=== PATIENT | male | born 1995 | race Caucasian/White ===

== ENCOUNTER 2017-10-21 10:30 | Outpatient (RCR) | payer OTHER, SELFPAY ==
--- NOTE | 2017-09-08 10:59 | HP.PTEVAL ---
Patient's Visit Information LUCY WILLETT is a 22 year old M referred to Physical Therapy by JESSIE TOWNSEND with a diagnosis of R HIP FEMOROACETABULAR IMPINGEMENT & LABRUM TEAR W/ SX REPAIR AND OSTEOPLAS. Date of Evaluation: 09/08/17 Physical Therapist: Letha Campos Cross - Visit Plan Frequency: 2-3x /Week Duration: 4-6 Weeks Plan: RIGHT HIP REHAB PER ARTHROSCOPIC LABRAL REPAIR PROTOCOL. NO FLEXION PAST 90 DEG UNTIL 6 WEEKS PO. GRADUALLY INCREASE WB STATUS TO FWB OVER THE NEXT 2-3 WEEKS. THE PATIENT SHOULD EXPERIENCE NO PAIN WITH EX'S. CASE CONFERENCE WITH JESSIE BILL DPT. TRANSFER OF CARE TO [facility] AT THIS TIME. - Subjective Subjective: THIS PATIENT PRESENTS TO PT REPORTING HE HAS NO IDEA HOW HE HURT HIS HIP. STATES HE ATTENDS [facility] IN [place]. PARTICIPATES IN SOCCER AND TRACK. REPORTS THE DOCTORS THINK HE HURT HIS HIP SOMETIME BEFORE HE STARTED SCHOOL BUT IN JAN 2017 HE WAS AT SCHOOL STARTING TRACK SEASON AND WHEN HE DID A HURTLE STRETCH HE FLET HIS HIP POP. WENT ON A 10 MILE RUN THE NEXT DAY AND FELT HE PULLED HIS HAMSTRING. 2 WEEKS OF PT THEN MRI THEN MORE TESTING AND CORTISONE SHOT IN MAY 2017. SURGERY JULY 2017. DOS 08/08/17. HE REPORTS RIGHT LATERAL HIP APIN RANGING 2/10 TO 6/10. TAKING PAIN MEDS NEEDED. STATES HE TOODK PAIN MEDICINE YESTERDAY BECAUSE THE DOG JUMPED ON ME. HE REPORTS HIS GOAL FOR PT IS TO KNOW WHAT TO DO TO GET BETTER. HE REPORTS HE WAS ON CRUTCHES FROM MARCH 2017 TO MAY 2017 BECAUSE OF PAIN. CORTISONE SHOT HELPED SO HE WAS ABLE TO GET OFF THE CRUTCHES UNTIL SURGERY. HIS SURGEON IS DR. MIRANDA GRIFFITHS AND HE ALSO SEES HIS PA JESSIE TOWNSEND. PATIENT REPORTS INCREASED PAIN IF HE BENDS HIS HIP > 90 DEG AND WITH MOVING HIS LEG OUT TO THE SIDE. DECREASED PAIN WITH PROPIING IT UP, ICING AND PAIN MEDS. HE REPORTS HE FOLLOWED UP WITH THE SURGEON AUGUST 19 2017 AND WAS TOLD HE CAN TAKE THE BRACE OFF 2-3 WEEKS FROM August. THEY REPEATED X-RAYS AND IT LOOKED GOOD PER PATIENT REPORT. HE STATES HE HAS BEEN TOLD TO ANTICIPATE 6 MONTHS FOR RETURN TO SPORT. HE STATES HE IS CURRENTLY WEARING THE BRACE AT ALL TIMES EXCEPT TO SLEEP. HE WAS ALSO SLEEPING IN THE BRACE UNTIL AUGUST 19. REPORTS HE HAS BEEN NWB SINCE SURGERY. - Pain R hip Pain Intensity (Out of 10): 2 Pain Intensity Range: 2, 6 Comment: lateral and anterior a little bit - Objective THIS PATIENT AMBULATES INDEP'LY INTO PT WITH BRYSON AXILLARY CRUTCHES NWB ON THE RIGHT LE AND WEARING RIGHT HIP BRACE. UPON OBSERVATION HE HAS RIGHT LEG AND FOOT MILD REDNESS AND SWELLING. BRYSON UE AND L LE ROM AND STRENGTH ARE WFL. RIGHT LE LIGHT TOUCH SENSATION IS INTACT. RIGHT HIP ACTIVE FLEX TO 90 DEG. RIGHT KNEE ROM IN SUPINE WITH A HEEL SLIDE = 0 DEG EXT TO 115 DEG FLEX. PROBLEMS: RIGHT HIP PAIN, DECREASED RIGHT LE WT. BEARING TOLERANCE AND DECREASED RIGH TLE FUNCTIONAL ROM AND STRENGTH. PATIENT WAS INSTRUCTED IN PWB ON THE RIGHT LE WITH BRYSON AXILLARY CRUTCHES TODAY WITH HEEL STIKE AND TOE OFF GAIT PATTERN. PATIENT IS RELUCTANT TO/TENATIVE IN ANY WEIGHT BEARING ON THE RIGHT LE BUT PLEASANT AND COOPERATIVE TO WORK WITH. - Goals Goal 1:: DECREASE C/O RIGHT HIP PAIN Goal Time Frame: 2-4 Weeks Goal 2:: INCREASE INDEP AND SAFE GAIT ON RLE WB TOLERATED WITH LEAST ASSISTIVE DEVICE Goal Time Frame: 2-4 Weeks Goal 3:: PATIENT WILL BE ABLE TO GO UP AND DOWN STEPS RECIPRICALLY WITH LEAST UE ASSIST. Goal Time Frame: 2-4 Weeks Goal 4:: INCREASE RIGHT LE ROM WITHIN PROTOCOL GUIDELINES Goal Time Frame: 2-4 Weeks Goal 5:: INCRASE RIGHT LE STENGTH WITHIN PROTOCOL GUIDELINES Goal Time Frame: 2-4 Weeks - Rehabilitation Potential Rehabilitation Potential: Good - Anticipated Interventions Patient/Client Instruction: Educate patient on: Condition, Plan of Care, Risk Factors, Benefits of Fitness Program For the Purpose of:: To improve self management Therapeutic Exercise to Include: Strength training, Flexibilty training, Gait and locomotor training, Passive ROM, Active ROM For the Purpose of:: To increase ROM, To improve muscle performance and motor function, To improve ability to perform ADL's, To increase tolerance to activity/condition/position, To improve ability of physical actions for home/community/work/leisure, To improve gait and locomotor functions TENS: Yes Cryotherapy (ice pack, ice massage): Yes Thermo therapy (hot pack): Yes Vasopneumatic device: Yes For the Purpose of:: To decrease pain, To decrease swelling/inflammation Thank you for the opportunity to evaluate your patient. For Medicare and Medicare HMO plans, please review the plan of care and approve it. It will need to be FAXED BACK to us at [phone] for Medicare purposes. Please let me know if there are questions or concerns regarding this plan of care. Physician Signature: Date:
--- NOTE | 2017-09-19 13:16 | HP.PTREVAL_ITS ---
ARON TOWNSEND, It has been my pleasure to treat LUCY WILLETT over the last 11 visits for R HIP FEMOROACETABULAR IMPINGEMENT & LABRUM TEAR W/ SX REPAIR AND OSTEOPLAS. Please see the progress note below for an update on the physical therapy plan of care! Subjective: Pt. reports no pain pre treatment, I get some pinching everyonce in awhile if I sit to long or if I am in one positioning for too long. He reports being HEP compliant without issues. He is to follow up with physician tomorrow. He is pleased with current progress. Objective/Function: ROM- slight HS tightness. He is still tight with his ER motions. Pt. has normal hip flexor length. MMT- knee- ext/flexion 5-/5; hip- flexion 4/5, abd 4+/5, ext 4+/5. Core strength- fair. Gait- normal without increase in symptoms. STAIRS: normal, reciprocal pattern, no HR without increase in symptoms. Normal squating motion- no substitution noted. Progressing as expected. Plan Plan: Pt. to follow up with physician to determine progress and how to progress going forward. Goals Goal 1:: DECREASE C/O RIGHT HIP PAIN Goal Time Frame: 2-4 Weeks Goal Progress: Goal Met Goal 2:: INCREASE INDEP AND SAFE GAIT ON RLE WB TOLERATED WITH LEAST ASSISTIVE DEVICE Goal Time Frame: 2-4 Weeks Goal Progress: Goal Met Goal 3:: PATIENT WILL BE ABLE TO GO UP AND DOWN STEPS RECIPRICALLY WITH LEAST UE ASSIST. Goal Time Frame: 2-4 Weeks Goal Progress: Goal Met Goal 4:: INCREASE RIGHT LE ROM WITHIN PROTOCOL GUIDELINES Goal Time Frame: 2-4 Weeks Goal Progress: Progressing Goal 5:: INCRASE RIGHT LE STENGTH WITHIN PROTOCOL GUIDELINES Goal Time Frame: 2-4 Weeks Goal Progress: Progressing Anticipated Interventions Patient/Client Instruction: Educate patient on: Condition, Plan of Care, Risk Factors, Benefits of Fitness Program For the Purpose of:: To improve self management Therapeutic Exercise to Include: Strength training, Flexibilty training, Gait and locomotor training, Passive ROM, Active ROM For the Purpose of:: To increase ROM, To improve muscle performance and motor function, To improve ability to perform ADL's, To increase tolerance to activity /condition/position, To improve ability of physical actions for home/community/ work/leisure, To improve gait and locomotor functions TENS: Yes Cryotherapy (ice pack, ice massage): Yes Thermo therapy (hot pack): Yes Vasopneumatic device: Yes For the Purpose of:: To decrease pain, To decrease swelling/inflammation Please do not hesitate to contact me at [phone] by phone or Fax: if you have questions or concerns regarding this new plan of care! Sincerely, Aron Haddad
--- NOTE | 2017-10-21 12:33 | HP.PTDCSUM ---
HP - PT D/C Summary It has been my pleasure to treat LUCY WILLETT under orders from ARON TOWNSEND, for the diagnosis of R HIP FEMOROACETABULAR IMPINGEMENT & LABRUM TEAR W/ SX REPAIR AND OSTEOPLAS for a total of 19 visit(s). Discharge Date: 10/21/17 Please see the following information for a summary of their discharge status. - Subjective Subjective: Pt. reports being 95% better overall. Pt. is pelased with progress. Pt. met with physician who wanted him to start light jogging. Pt. is back to light jogging without issues. No adverse reaction after last visit. Pt is going abck to school tomorrow. - Pain R hip Pain Intensity (Out of 10): 0 - Overall Improvement % Improvement: 95 - Objective Objective/Function: ROM- R hip- 118deg, adb 50deg, ER full, IR 30deg NE, ext 15deg NE. MMT- 5/5 throughout wihtout increase in symptoms. squat pattern- normal without wt. shifting or compensation. Pt. has good running pattern. Pt. is upto joggin at ~50-60% of max on Tmill. Pt. is pleased progress. - Goals Goal 1:: DECREASE C/O RIGHT HIP PAIN Goal Progress: Goal Met Goal 2:: INCREASE INDEP AND SAFE GAIT ON RLE WB TOLERATED WITH LEAST ASSISTIVE DEVICE Goal Progress: Goal Met Goal 3:: PATIENT WILL BE ABLE TO GO UP AND DOWN STEPS RECIPRICALLY WITH LEAST UE ASSIST. Goal Progress: Goal Met Goal 4:: INCREASE RIGHT LE ROM WITHIN PROTOCOL GUIDELINES Goal Progress: Goal Met Goal 5:: INCRASE RIGHT LE STENGTH WITHIN PROTOCOL GUIDELINES Goal Progress: Goal Met - Plan Plan: PT. will be DC from PT at this facility at this point in time. He would benefit from PT to progress into plyometric and cutting exercises once medically ready. - D/C Information Discharge Comments: Pt. was treated in PT for his R hip labral repair. Pt. progessed as expected. Pt. now has full strength in his RLE, but would benefit from continued stretching as tolerated. Pt. has progressed to light jogging currently. He is going back to school and will resume PT there with progression of plyometrics, running as tolerated. Pt. will be DC from this clinic this date. If there are questions or concerns regarding this patient's physical therapy, please feel free to call me at [phone]. Thank you for the referral of this patient. Sincerely, Aron Haddad
== END 2017-10-21 19:00 | disposition home or self-care (01) ==
LOC: PT 10:30
PROVIDERS: Family Provider Nurse Practitioner; PCP Nurse Practitioner
DX: M25.851 Other specified joint disorders, right hip (principal); S73.191D Other sprain of right hip, subsequent encounter; Z98.890 Other specified postprocedural states
CPT/HCPCS: 97110; 97116; 97162; 97530